=== PATIENT | female | born 1970 | race Caucasian/White ===

== ENCOUNTER 2023-08-20 11:54 | Emergency (ER) | payer OTHER ==
[~2023-08-20] VITALS: Ht 170.2 cm; Wt 113.4 kg
[~2023-08-20 11:54] MED LIST: METH-1550 PO; [UNRECOGNIZED DRUG - CODE] PO
[2023-08-20 11:58] VITALS: BP 97/70; PULSE 89; RESP 20; TEMP 97.6; O2SAT 97
[2023-08-20] MEDS: DICYCLOMINE HCL LIQUID 20 MG, ALUMINUM HYD/MAG/SIMETHICONE 30 ML, LIDOCAINE VISCOUS 2% ... PO ONE (12:40)
[2023-08-20] MEDS: ACETAMINOPHEN EXTRA STRENGTH 500 MG TAB PO ONE (12:40)
[2023-08-20] MEDS ORDERED: ALUMINUM HYD/MAG/SIMETHICONE 30 ML UDC ONE (13:34)
[2023-08-20] MEDS ORDERED: DICYCLOMINE HCL LIQUID 10 MG/5 ML UDC ONE (13:34)
[2023-08-20] MEDS: KETOROLAC 30 MG/ML VIAL IVP ONE (13:48)
[2023-08-20] MEDS: ONDANSETRON 4 MG/2 ML VIAL IVP ONE (13:49)
[2023-08-20] MEDS: NACL 0.9% 1,000 ML IV ONE (13:50)
[2023-08-20 15:19] LABS: BASOPHILS % (AUTO) 0.1 % (0.0-2.0); EOSINOPHILS % (AUTO) 0.5 % (0.0-4.0); HEMATOCRIT 44.8 % (36-48); HEMOGLOBIN 15.1 g/dL (12.0-16.0); LYMPHOCYTES # (AUTO) 0.4 K/uL (2.5-16.5); MEAN CORPUSCULAR HEMOGLOBIN 30 pg (27-31); MEAN CORPUSCULAR HGB CONC 34 g/dL (33-37); MEAN CORPUSCULAR VOLUME 90.3 fL (80-94); MONOCYTES # (AUTO) 0.3 K/uL (0.8-1.0); MONOCYTES % (AUTO) 3.9 % (1.7-9.3); NEUTROPHILS % (AUTO) 89.5 % (42.2-75.2); PLATELET COUNT (AUTO) 140 K/uL (140-450); RED BLOOD CELL COUNT(AUTO) 4.96 MIL/uL (4.20-5.40); RED CELL DISTRIBUTION WIDTH 13.5 % (11.6-13.7)
[2023-08-20 15:26] LABS: WHITE BLOOD COUNT (AUTO) 6.7 K/uL (4.8-10.8)
[2023-08-20 15:41] LABS: ALBUMIN 3.4 g/dL (3.4-5.0); ANION GAP 10.7 (8-16); CALCIUM 7.8 mg/dL (8.5-10.1); CARBON DIOXIDE 29.8 mmol/L (21-32); CREATININE 0.7 mg/dL (0.6-1.3); POTASSIUM 4.5 mmol/L (3.5-5.1); TOTAL BILIRUBIN 0.5 mg/dL (0.0-1.0)
[2023-08-20 17:19] LABS: APPEARANCE,URINE CLEAR (CLEAR); BILIRUBIN,URINE NEGATIVE (NEGATIVE); BLOOD, URINE NEGATIVE (NEGATIVE); COLOR,URINE YELLOW (YELLOW); LEUKOCYTE ESTERASE ,URINE NEGATIVE (NEGATIVE); NITRITE, URINE NEGATIVE (NEGATIVE); PROTEIN,URINE NEGATIVE (NEGATIVE); UGLUCOSE NEGATIVE (NEGATIVE)
[2023-08-20 17:21] LABS: BACTERIA,URINE FEW /HPF (None Seen); RBC,URINE 0-5 /HPF (0-5); SQUAMOUS EPITHELIAL CELL,UR 0-3 (FEW) /LPF (0-3 (FEW)); WBC,URINE 0-5 /HPF (0-5)
[2023-08-20 17:22] LABS: MUCUS,URINE None Seen /LPF (None Seen); TRICHOMONAS,URINE None Seen /HPF (None Seen); YEAST,URINE None Seen /HPF (None Seen)
[2023-08-20 17:23] LABS: URINE AMORPHOUS URATE 4+ /HPF (None Seen)
[2023-08-20] MEDS ORDERED: ACET-10509 PO (17:23)
[2023-08-20] MEDS ORDERED: OMEP20EC11 PO (17:23)
[2023-08-20] MEDS ORDERED: MAG355OR2 PO (17:23)
[2023-08-20] MEDS ORDERED: BEN10 PO (17:23)
[2023-08-20] MEDS ORDERED: NITR100C7 PO (17:32)
[2023-08-20 17:56] VITALS: BP 131/74; PULSE 78; RESP 16; TEMP 98.3; O2SAT 98
== END 2023-08-20 17:55 | disposition home or self-care (01) ==
LOC: MED 11:54
DX: K29.70 Gastritis, unspecified, without bleeding (principal); N39.0 Urinary tract infection, site not specified; Z90.49 Acquired absence of other specified parts of digestive tract; Z79.1 Long term (current) use of non-steroidal anti-inflammatories (NSAID); Z79.899 Other long term (current) drug therapy
CPT/HCPCS: 36415; 74176; 76705; 80053; 81001; 81025; 83690; 85025; 96361; 96374; 96375; 99285; J1885; J2405; J7030; Q0092